=== PATIENT | female | born 1970 | race American Indian/Alaskan Native ===

== ENCOUNTER 2022-01-07 22:37 | Emergency (ER) | payer OTHER ==
[2022-01-08] MEDS ORDERED: SODIUM CHLORIDE 0.9% 500 ML 500 ML IV ONE (09:07)
[2022-01-08] MEDS ORDERED: ONDANSETRON 4 MG/2 ML INJ IV ONE (09:08)
[2022-01-08] MEDS ORDERED: MORPHINE 4 MG/1 ML INJ IV ONE (09:08)
--- NOTE | 2022-01-08 09:48 | XRay Report ---
XR chest 1V ap INDICATION / CLINICAL INFORMATION: Chest Pain. COMPARISON: 05/03/2021 FINDINGS: SUPPORT DEVICES: None. HEART /PULMONARY VASCULATURE: Heart is upper normal in size. No significant pulmonary vasculature con gestion. LUNGS / PLEURA: No significant pulmonary or pleural abnormality. No pneumothorax. ADDITIONAL FINDINGS: No significant additional findings. IMPRESSION: 1. No acute findings. Signer Name: Brooks Francois MD Signed: 01/08/2022 9:44 AM Workstation Name: [id number]
[2022-01-08 09:53] LABS: Basophils % (Auto) 0.5 % (0.0-1.8); Eosinophils # (Auto) 0.2 K/mm3 (0.0-0.4); Eosinophils % (Auto) 3.4 % (0.0-4.3); Hematocrit 38.3 % (30.3-42.9); Hemoglobin 12.8 gm/dl (10.1-14.3); Lymphocytes # (Auto) 2.5 K/mm3 (1.2-5.4); Lymphocytes % (Auto) 39.5 % (13.4-35.0); Mean Corpuscular HGB Conc 33 % (30-34); Mean Corpuscular Volume 85 fl (79-97); Monocytes # (Auto) 0.4 K/mm3 (0.0-0.8); Monocytes % (Auto) 5.8 % (0.0-7.3); Platelet Count 176 K/mm3 (140-440); Red Cell Distribution Width 14.6 % (13.2-15.2)
[2022-01-08 10:17] LABS: Alanine Aminotransferase 19 units/L (7-56); Albumin 4.2 g/dL (3.9-5); BUN/Creatinine Ratio 14; Blood Urea Nitrogen 10 mg/dL (7-17); Calcium 9.3 mg/dL (8.4-10.2); Hemolysis Index 12
[2022-01-08 11:06] VITALS: BP 144/81
--- NOTE | 2022-01-08 11:07 | Emergency Department Report ---
ED Chest Pain HPI - General Chief Complaint: Chest Pain Stated Complaint: CHEST PAIN PUI?: No Time Seen by Provider: 01/08/22 09:03 Source: EMS Mode of arrival: Stretcher Limitations: No Limitations - History of Present Illness Initial Comments: chest pain x 1 week, EMS states "non -cardiac" does not radiate, sternal, nothing makes it better or worse, 12-lead SR, pt states happened in July - "by the time I saw my PCP it had stopped so they never followed up with it." MD Complaint: chest pain -: Gradual, month(s) Pain Location: right chest Pain Radiation: none Severity: moderate Severity scale (0 -10): 9 Quality: aching Consistency: constant Worsens With: palpation re: nausea - Related Data Allergies Allergy/AdvReac Type Severity Reaction Status Date / Time No Known Allergies Allergy Unverified 01/08/22 00:24 Heart Score - HEART Score History: Slightly suspicious EKG: Non-specific Age: 45-65 Risk factors: No known risk factors Troponin: < normal limit HEART Score: 2 - EKG Read Time Time EKG Completed: 11:06 EKG Read Time: 11:06 - Critical Actions Critical Actions: 0-3 pts:0.9-1.7%risk of adverse cardiac event.Candidate for discharge ED Review of Systems ROS: Stated complaint: CHEST PAIN Other details as noted in HPI Constitutional: denies: chills, fever Eyes: denies: eye pain, eye discharge, vision change ENT: denies: ear pain, throat pain Respiratory: denies: cough, shortness of breath, wheezing Cardiovascular: denies: chest pain, palpitations Endocrine: no symptoms reported Gastrointestinal: denies: abdominal pain, nausea, diarrhea Genitourinary: denies: urgency, dysuria, discharge Musculoskeletal: denies: back pain, joint swelling, arthralgia Skin: denies: rash, lesions Neurological: denies: headache, weakness, paresthesias Psychiatric: denies: anxiety, depression Hematological/Lymphatic: denies: easy bleeding, easy bruising ED Past Medical Hx - Past Medical History Previous Medical History?: Yes Hx Hypertension: Yes Hx Diabetes: Yes - Surgical History Past Surgical History?: Yes Additional Surgical History: hysterectomy, knee replacement, back surgery - Social History Smoking Status: Never Smoker Substance Use Type: None ED Physical Exam - General Limitations: No Limitations General appearance: alert, in no apparent distress - Head Head exam: Present: atraumatic, normocephalic - Eye Eye exam: Present: normal appearance - ENT ENT exam: Present: mucous membranes moist - Neck Neck exam: Present: normal inspection - Respiratory Respiratory exam: Present: normal lung sounds bilaterally, chest wall tenderness. Absent: respiratory distress - Cardiovascular Cardiovascular Exam: Present: regular rate, normal rhythm. Absent: systolic murmur, diastolic murmur, rubs, gallop - GI/Abdominal GI/Abdominal exam: Present: soft, normal bowel sounds - Extremities Exam Extremities exam: Present: normal inspection - Back Exam Back exam: Present: normal inspection - Neurological Exam Neurological exam: Present: alert, oriented X3 - Psychiatric Psychiatric exam: Present: normal affect, normal mood - Skin Skin exam: Present: warm, dry, intact, normal color. Absent: rash ED Course Vital Signs 01/08/22 01/08/22 01/08/22 00:24 09:32 09:47 Temperature 98.4 F 98.0 F 98.0 F Pulse Rate 99 H 89 76 Respiratory 18 17 15 Rate Blood Pressure 160/90 156/86 Blood Pressure 139/94 [Right] O2 Sat by Pulse 99 100 100 Oximetry VITOR score - Vitor Score Age > 65: (0) No Aspirin use within the Past 7 Days: (0) No 3 or more CAD Risk Factors: (0) No 2 or more Angina events in past 24 hrs: (0) No Known CAD with more than 50% Stenosis: (0) No ED Medical Decision Making - Lab Data Result diagrams: 01/08/22 09:39 01/08/22 09:39 - EKG Data -: EKG Interpreted by Md Rate: normal - EKG Data Interpretation: nonspecific ST-T wave doretha - Radiology Data Radiology results: report reviewed, image reviewed - Medical Decision Making work up negative ekg non specific, clincally chest wall tendernress pt had mammogram that was negative is spect costchonditis Critical care attestation.: If time is entered above; I have spent that time in minutes in the direct care of this critically ill patient, excluding procedure time. ED Disposition Clinical Impression: Chest wall pain, Costochondritis Disposition: 01 HOME / SELF CARE / HOMELESS Is pt being admited?: No Does the pt Need Aspirin: No Condition: Stable Instructions: Nonspecific Chest Pain, Adult, Chest Wall Pain, [id number] Referrals: PRIMARY CARE,MD [Primary Care Provider] - 3-5 Days
--- NOTE | 2022-01-09 09:49 | Electrocardiograph Report ---
[facility] Test Date: 2022-01-08 Test Time: 00:48:34 Pat Name: BOOKER ALONSO Department: Room: Gender: F Inspector Final Assembly Mechanical: SHAN : 1970 Requested By: ANTHONY RHODES Order Number: [id number] Reading MD: David Wharton Measurements Intervals Moro Rate: 81 P: 59 FL: 173 QRS: -50 QRSD: 80 T: 99 QT: 395 QTc: 460 Interpretive Statements Sinus rhythm LAD, consider left anterior fascicular block Nonspecific T abnormalities, lateral leads No previous ECG available for comparison Electronically Signed On 01-09-2022 9:48:54 EDT by David Wharton
== END 2022-01-08 11:50 | disposition home or self-care (01) ==
LOC: ED 22:37
DX: R07.9 Chest pain, unspecified (principal); M94.0 Chondrocostal junction syndrome [Tietze]; I10 Essential (primary) hypertension; E11.9 Type 2 diabetes mellitus without complications
CPT/HCPCS: 36415; 71045; 80053; 83690; 84484; 85025; 86140; 93005; 96374; 96375; 99284; J2270; J2405; J7040